=== PATIENT | female | born 2005 | race Caucasian/White ===

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

== ENCOUNTER 2024-07-02 07:22 | Emergency (ER) | payer OTHER ==
--- NOTE | 2024-07-02 08:04 | ED Physician Documentation ---
History of Present Illness - Stated complaint Stated Complaint: ABD PX, RT FLANK PX - Chief complaint Chief Complaint: Back Pain - History obtained from History obtained from: Patient - History of Present Illness Pain level max: 7 Pain level now: 4 - Additonal information Additional information: Patient is a 19-year-old female who states that she has had several months of intermittent right flank pain. She states that she was seen at the [facility], diagnosed with a UTI and then was told later that her urine culture did not grow out anything. She states that the pain sometimes is worse if she stays in certain positions for prolonged periods of time. Also sometimes worse with movement. She states that she has had changes in sexual partners but no STI exposure that she is aware of. She states that she was at work this morning when the pain increased, therefore came in for evaluation. She states it feels like a stabbing pain in the right kidney. No fevers. No chills. No diarrhea or constipation. No abnormal vaginal bleeding or discharge. She is on Nexplanon for control The patient is currently on Macrobid from the [facility]. Review of Systems Constitutional: denies: Fever, Chills Nose: denies: Rhinorrhea / runny nose, Congestion Cardiac: denies: Chest pain / pressure Respiratory: denies: Cough GI: denies: Vomiting, Hematemesis, Bloody / black stool : reports: Dysuria, Frequency. denies: Hematuria, Discharge, Now EGA Skin: denies: Rash Musculoskeletal: denies: Neck pain, Back pain Neurologic: denies: Headache PD PAST MEDICAL HISTORY - Past Medical History Past Medical History: No - Past Surgical History Past Surgical History: No - Present Medications Home Medications: Ambulatory Orders Medication Instructions Recorded Confirmed Doxycycline [Vibramycin] 100 mg PO BID #14 tablet 07/02/24 Etonogestrel [Nexplanon] 68 mg SQ DAILY 07/02/24 07/02/24 - Allergies Allergies/Adverse Reactions: Allergies Allergy/AdvReac Type Severity Reaction Status Date / Time Sulfa (Sulfonamide Allergy Unknown Verified 07/02/24 07:45 Antibiotics) - Social History Does the pt smoke?: No Smoking Status: Never smoker Does the pt drink ETOH?: No Does the pt have substance abuse?: No - Immunizations Immunizations are current?: Yes - POLST Patient has POLST: No PD ED PE NORMAL - Vitals Vital signs reviewed: Yes - General General: Alert and oriented X 3, No acute distress - HEENT HEENT: Moist mucous membranes - Neck Neck: Supple, no meningeal sign - Cardiac Cardiac: RRR, Strong equal pulses - Respiratory Respiratory: No respiratory distress, Clear bilaterally - Abdomen Abdomen: Soft, Non distended, Other (Mild right upper and right lower quadrant tenderness. No peritoneal signs) - Back Back: No spinal TTP, Other (Mild right CVA tenderness) - Derm Derm: Warm and dry - Neuro Neuro: Alert and oriented X 3 - Psych Psych: Normal mood, Normal affect Results - Vitals Vitals: Vital Signs - 24 hr 07/02/24 07/02/24 07/02/24 07:39 09:44 11:31 Temperature 36.9 C Heart Rate 87 64 72 Respiratory 15 14 Rate Blood Pressure 118/78 117/72 128/73 O2 Saturation 100 99 100 07/02/24 11:38 Temperature 36.5 C Heart Rate 72 Respiratory 15 Rate Blood Pressure 128/73 O2 Saturation 100 Oxygen O2 Source Room air - Labs Labs: Laboratory Tests 07/02/24 07/02/24 07/02/24 08:10 08:10 08:15 WBC 5.0 RBC 4.16 L Hgb 12.9 Hct 39.3 MCV 94.5 MCH 31.0 MCHC 32.8 RDW 11.5 L Plt Count 177 MPV 11.1 H Neut # (Auto) 2.6 Lymph # (Auto) 2.0 [place] # (Auto) 0.3 Eos # (Auto) 0.1 Baso # (Auto) 0.0 Absolute Nucleated RBC 0.00 Nucleated RBC % 0.0 Sodium 138 Potassium 3.9 Chloride 105 Carbon Dioxide 27 Anion Gap 6.0 BUN 12 Creatinine 0.5 L Estimated GFR (MDRD) 157 Glucose 112 H Calcium 9.7 Total Bilirubin 0.5 AST 19 ALT 25 Alkaline Phosphatase 41 L Total Protein 7.2 Albumin 4.6 Globulin 2.6 Albumin/Globulin Ratio 1.8 Lipase < 10 L Urine Color Urine Clarity Urine pH Ur Specific [place] Urine Protein Urine Glucose (UA) Urine Ketones Urine Occult Blood Urine Nitrite Urine Bilirubin Urine Urobilinogen Ur Leukocyte Esterase Urine RBC Urine WBC Urine WBC Clumps Ur Epithelial Cells Ur Squamous Epith Cells Urine Crystals Amorphous Sediment Urine Bacteria Urine Casts Urine Starch Urine Mucus Urine Trichomonas Urine Yeast Urine Sperm Ur Oval Fat Bodies Ur Microscopic Review Urine Culture Comments Urine HCG, Qual Chlam trachomat DNA PCR POSITIVE A N.gonorrhoeae DNA (PCR) NEGATIVE T. vaginalis (PCR) NEGATIVE 07/02/24 08:17 WBC RBC Hgb Hct MCV MCH MCHC RDW Plt Count MPV Neut # (Auto) Lymph # (Auto) [place] # (Auto) Eos # (Auto) Baso # (Auto) Absolute Nucleated RBC Nucleated RBC % Sodium Potassium Chloride Carbon Dioxide Anion Gap BUN Creatinine Estimated GFR (MDRD) Glucose Calcium Total Bilirubin AST ALT Alkaline Phosphatase Total Protein Albumin Globulin Albumin/Globulin Ratio Lipase Urine Color YELLOW Urine Clarity SL. CLOUDY Urine pH 6.0 Ur Specific [place] >=1.030 H Urine Protein NEGATIVE Urine Glucose (UA) NEGATIVE Urine Ketones NEGATIVE Urine Occult Blood NEGATIVE Urine Nitrite NEGATIVE Urine Bilirubin NEGATIVE Urine Urobilinogen 0.2 (NORMAL) Ur Leukocyte Esterase SMALL H Urine RBC 0-5 Urine WBC 11-25 H Urine WBC Clumps Cancelled Ur Epithelial Cells Cancelled Ur Squamous Epith Cells MANY Squamous H Urine Crystals Cancelled Amorphous Sediment Cancelled Urine Bacteria Moderate H Urine Casts Cancelled Urine Starch Cancelled Urine Mucus Cancelled Urine Trichomonas Cancelled Urine Yeast Cancelled Urine Sperm Cancelled Ur Oval Fat Bodies Cancelled Ur Microscopic Review INDICATED Urine Culture Comments NOT INDICATED Urine HCG, Qual NEGATIVE Chlam trachomat DNA PCR N.gonorrhoeae DNA (PCR) T. vaginalis (PCR) - Rads (name of study) CT abdomen pelvis Relevant Findings:: Final report received, See rad report pelvic US Relevant Findings:: Final report received, See rad report PD Medical Decision Making - ED course Complexity details: reviewed results, re-evaluated patient, considered differential, d/w patient ED course: 19-year-old female presents to the emergency department with intermittent right flank pain over the past few months. Also has occasional pelvic pain. She does have changes in sexual partners. She is positive for chlamydia. She was given Rocephin and doxycycline. Will place on doxycycline for home. Pelvic ultrasound was performed there do appear to be cystic structures on CT scan and her adnexa. No evidence of TOA. Abdomen is soft, nontender nondistended. Declines pelvic exam. Patient is well-appearing, nontoxic. Afebrile. Recommend that she have follow-up testing for further STIs including HIV with her PCP. Recommend that she speak to her partners and have them tested/treated as well. Patient counseled regarding signs and symptoms for which I believe and urgent re-evaluation would be necessary. Patient with good understanding of and agreement to plan and is comfortable going home at this time This document was made in part using voice recognition software. While efforts are made to proofread this document, sound alike and grammatical errors may occ ur. Departure - Departure Disposition: 01 Home, Self Care Clinical Impression: Chlamydia, Flank pain Condition: Good Instructions: ED Chlamydia Female Follow-Up: your,doctor in 1 week [Other] Prescriptions: Doxycycline [Vibramycin] 100 mg PO BID #14 tablet Comments: As we discussed you have tested positive for chlamydia today. Your CT scan does not show any acute abnormalities. Your ultrasound does show an ovarian cyst but does not need any further intervention at this time. Your partners will need to be tested and treated as well. You should also receive full STI testing from your primary care provider including HIV testing. Please return if you worsen. Your prescription was sent to [facility] in [place]. Discharge Date/Time: 07/02/24 11:39
[2024-07-02 08:15] LABS: BASOPHILS % (AUTO) 0.6 %; EOSINOPHILS # (AUTO) 0.1 10^3/uL (0.0-0.7); EOSINOPHILS % (AUTO) 2.4 %; HCT - HEMATOCRIT 39.3 % (37.0-47.0); HGB - HEMOGLOBIN 12.9 g/dL (12.0-16.0); LYMPHOCYTES % (AUTO) 39.9 %; MEAN CORPUSCULAR HGB CONC 32.8 g/dL (32.0-36.0); MEAN CORPUSCULAR VOLUME 94.5 fL (81.0-99.0); MEAN PLATELET VOLUME 11.1 fL (7.9-10.8); MONOCYTES # (AUTO) 0.3 10^3/uL (0.0-1.0); MONOCYTES % (AUTO) 5.4 %; NEUTROPHILS # (AUTO) 2.6 10^3/uL (1.5-6.6); NEUTROPHILS % (AUTO) 51.5 %; PLT - PLATELET COUNT 177 10^3/uL (130-450); RED BLOOD COUNT 4.16 10^6/uL (4.20-5.40); RED CELL DISTRIBUTION WIDTH 11.5 % (12.0-15.0)
[2024-07-02] MEDS: KETOROLAC 30 MG/ML VIAL IVP STA (08:18)
[2024-07-02 08:27] LABS: BILIRUBIN,URINE NEGATIVE (NEGATIVE); GLUCOSE, URINE (UA) NEGATIVE (NEGATIVE); KETONES,URINE (UA) NEGATIVE (NEGATIVE); LEUKOCYTE ESTERASE, URINE SMALL (NEGATIVE); NITRITE,URINE NEGATIVE (NEGATIVE); OCCULT BLOOD,URINE NEGATIVE (NEGATIVE); PROTEIN,URINE NEGATIVE (NEGATIVE); UROBILINOGEN,URINE 0.2 (NORMAL) E.U./dL (NORMAL)
[2024-07-02 08:28] LABS: CLARITY,URINE SL. CLOUDY (CLEAR)
[2024-07-02 08:28] LABS: ALBUMIN 4.6 g/dL (3.2-5.5); ALBUMIN/GLOBULIN RATIO 1.8 (1.0-2.2); ALKALINE PHOSPHATASE 41 IU/L (42-121); ALT ALANINE AMINOTRANSFERASE 25 IU/L (10-60); AST ASPARTATE AMINOTRANSFERASE 19 IU/L (10-42); BILIRUBIN,TOTAL 0.5 mg/dL (0.2-1.0); BUN - BLOOD UREA NITROGEN 12 mg/dL (6-20); CALCIUM 9.7 mg/dL (8.5-10.3); CARBON DIOXIDE - CO2 27 mmol/L (21-32); CHLORIDE 105 mmol/L (101-111); CREATININE 0.5 mg/dL (0.6-1.3); GFR - MDRD 157 (>89); GLUCOSE 112 mg/dL (74-104); POTASSIUM 3.9 mmol/L (3.5-4.5); SODIUM 138 mmol/L (135-145); TOTAL PROTEIN 7.2 g/dL (6.4-8.9)
[2024-07-02 08:29] LABS: HCG UR QUAL NEGATIVE
[2024-07-02] MEDS ORDERED: iohexoL-300 100 ML VIAL ONE (08:31)
[2024-07-02 08:37] LABS: BACTERIA,URINE Moderate /HPF (None Seen); RBC,URINE 0-5 /HPF (0-5); SQUAMOUS EPITHELIAL CELL,UR MANY Squamous (<= Few)
[2024-07-02 08:38] LABS: LIPASE < 10 U/L (11-82)
[2024-07-02] MEDS: iohexoL-300 100 ML VIAL IVP ONE (09:15)
--- NOTE | 2024-07-02 09:49 | CT Report ---
PROCEDURE: Abdomen/Pelvis W INDICATIONS: R sided abd pain TECHNIQUE: Helical axial CT of the abdomen and pelvis was obtained after intravenous contrast adminis tration and reformatted in multiple planes. Radiation dose reduction was achieved using automated exp osure control or adjustment of mA and/or kV according to patient size. COMPARISON: None FINDINGS: Lower thorax: The lung bases are clear. Heart size normal. No hiatal hernia. Liver: Normal in size and attenuation. No contour deformity present. Biliary system: No calcified cholelithiasis or pericholecystic inflammation. No evidence of bile du ct dilatation. Pancreas: Unremarkable without mass or inflammation evident. Spleen: Normal in size and density. Adrenals: Normal morphology and density. Reproductive system: Cystic change in both ovaries. Uterus unremarkable Urinary system: Normal renal size and attenuation. No renal calculi, hydronephrosis, or solid mass p resent. Urinary bladder unremarkable. Homogeneous and uniform enhancement without evidence of pyelon ephritis. The small subcentimeter right renal cyst Gastrointestinal system: Moderate fecal debris in the right colon and rectum. No obstruction. Normal appendix identified. Peritoneal spaces: No mesenteric or retroperitoneal adenopathy. No free air. No free fluid. Vasculature: The IVC, aorta and iliac vasculature are unremarkable. Abdominal wall: Abdominal wall is intact without evidence of ventral or inguinal hernias. Musculoskeletal: Normal bone mineralization. No acute fractures. IMPRESSION: No CT evidence of pyelonephritis or obstructive uropathy. No hydronephrosis or calculus. Moderate fecal debris throughout the colon without obstruction. Cystic changes noted in both adnexa. Consider ultrasound correlation. Reviewed by: Rivas Menendez MD on 07/02/2024 8:48 AM JOSE MANUEL Approved by: Rivas Menendez MD on 07/02/2024 8:48 AM JOSE MANUEL Station ID: [id number]
[2024-07-02 10:31] LABS: NEISSERIA GONORRHOEAE DNA NEGATIVE (NEGATIVE); TRICHOMONAS VAGINALIS DNA NEGATIVE (NEGATIVE)
[2024-07-02 10:34] LABS: CHLAMYDIA TRACHOMATIS DNA POSITIVE (NEGATIVE)
[2024-07-02] MEDS: DOXYCYCLINE 100 MG TABLET PO STA (10:50)
[2024-07-02] MEDS: cefTRIAXone 1 GM VIAL IVP STA (10:50)
[2024-07-02] MEDS: DEXAMETHASONE 10 MG/ML VIAL IVP STA (11:12)
[2024-07-02 11:33] VITALS: BP 128/73; O2SAT 100
--- NOTE | 2024-07-02 12:03 | Ultrasound Report ---
PROCEDURE: Pelvic w/Doppler Complete INDICATIONS: pelvic pain, R TECHNIQUE: Ultrasound of pelvis was obtained COMPARISON: None. FINDINGS: Transabdominal ultrasound pelvis. Uterus 6.8 x 2.2 x 3.3 cm. Anteverted. Heterogenous. Endometrial thickness 0.2 cm Right left ovaries are appropriate in size, echotexture and vascularity. 1.8 cm left ovarian simple c yst. Small amount of free fluid noted in the right adnexa. IMPRESSION: Unremarkable ultrasound of the pelvis. Small right adnexal free fluid is physiologic. Reviewed by: Rivas Menendez MD on 07/02/2024 11:01 AM JOSE MANUEL Approved by: Rivas Menendez MD on 07/02/2024 11:01 AM JOSE MANUEL Station ID: [id number]
== END 2024-07-02 11:39 | disposition home or self-care (01) ==
LOC: ED 07:22
DX: A56.8 Sexually transmitted chlamydial infection of other sites (principal); N83.292 Other ovarian cyst, left side
CPT/HCPCS: 36415; 74177; 76856; 80053; 81001; 81025; 83690; 85025; 87491; 87591; 87661; 93975; 96374; 96375; 99283; 99284; A9270; Q9967; 81003; 87086